=== PATIENT | female | born 1990 | race Two or more races ===

== ENCOUNTER 2017-12-04 02:42 | Emergency (ER) | payer MEDICAID ==
[~2017-12-04] VITALS: Ht 154.9 cm; Wt 71.2 kg
[2017-12-04 03:00] VITALS: BP 140/89
[2017-12-04] MEDS ORDERED: methylPREDNISolone SOD SUCC 125 MG/2 ML VL IM ONE (03:45)
[2017-12-04] MEDS ORDERED: KETOROLAC TROMETH 60MG/2ML VIAL IM ONE (03:45)
== END 2017-12-04 04:18 | disposition home or self-care (01) ==
LOC: ER 02:44
DX: S33.5XXA Sprain of ligaments of lumbar spine, initial encounter (principal); M79.1 Myalgia; X58.XXXA Exposure to other specified factors, initial encounter; Y93.89 Activity, other specified; Y92.89 Other specified places as the place of occurrence of the external cause; Y99.8 Other external cause status
CPT/HCPCS: 81025; 96372; 99284; J1885; J2930

== ENCOUNTER 2017-12-24 16:23 | Emergency (ER) | payer MEDICAID ==
[~2017-12-24] VITALS: Ht 154.9 cm; Wt 72.6 kg
[2017-12-24 18:04] LABS: Basophils # (auto) 0.1 uL; Basophils % (auto) 0.6 % (0.0-2.0); Eosinophils # (auto) 0.1 uL; Eosinophils % (auto) 0.8 % (0.0-7.0); Hematocrit 38.8 % (36.0-46.0); Lymphocytes # (auto) 1.4 uL; Mean Corpuscular Hemoglobin 30.1 pg (28.0-32.0); Mean Corpuscular Hgb Conc. 33.4 g/dL (32.0-36.0); Mean Corpuscular Volume 90.1 fL (80.0-100.0); Monocytes # (auto) 0.4 uL; Monocytes % (auto) 3.5 % (0.0-12.0); Neutrophils # (auto) 8.6 uL; Neutrophils % (auto) 82.1 % (37.0-80.0); Platelet Count (auto) 266 10^3/uL (140-450); Red Blood Cells 4.31 10^6/uL (4.0-5.20); Red Cell Distribution Width 13.6 % (11.8-14.3); White Blood Cell 10.4 10^3/uL (4.4-10.8)
[2017-12-24 18:23] LABS: BUN/Creatinine Ratio 16.9; Calcium 8.5 mg/dL (8.5-10.1); Magnesium 2.3 mg/dL (1.6-2.6); Potassium 3.6 mmol/L (3.5-5.1)
[2017-12-24] MEDS ORDERED: ONDANSETRON HCL 4 MG/2 ML VIAL IV ONE (19:30)
[2017-12-24] MEDS ORDERED: NALBUPHINE HCL 10 MG/1ml INJECTION IV ONE (19:30)
[2017-12-24 19:40] LABS: Urine Amorphous Crystal MOD /hpf (None Seen); Urine Bacteria FEW /hpf (None Seen); Urine Blood Negative /uL (Negative); Urine Mucus FEW (None Seen); Urine Specific Gravity 1.026 (1.001-1.035); Urine WBC 46 /hpf (0 - 5)
[2017-12-24 21:20] VITALS: BP 106/73
[2017-12-24] MEDS ORDERED: metroNIDAZOLE 500 MG TAB PO ONE (22:30)
[2017-12-24] MEDS ORDERED: CEPHALEXIN 250 MG CAP PO ONE (22:30)
== END 2017-12-24 22:41 | disposition home or self-care (01) ==
LOC: ER 16:23
DX: N39.0 Urinary tract infection, site not specified (principal); K80.20 Calculus of gallbladder without cholecystitis without obstruction
CPT/HCPCS: 36415; 74176; 80048; 81001; 81025; 82150; 83690; 83735; 85025; 96374; 96375; 99285; J2300; J2405

== ENCOUNTER 2019-02-05 08:39 | Emergency (ER) | payer MEDICAID ==
[~2019-02-05] VITALS: Ht 157.5 cm; Wt 79.4 kg
[2019-02-05 09:12] VITALS: BP 110/77
[2019-02-05] MEDS ORDERED: IBUPROFEN 800 MG TAB PO ONE (09:30)
== END 2019-02-05 10:16 | disposition home or self-care (01) ==
LOC: ER 08:39
DX: S13.4XXA Sprain of ligaments of cervical spine, initial encounter (principal); R51 Headache; V49.49XA Driver injured in collision with other motor vehicles in traffic accident, initial encounter; Y93.I9 Activity, other involving external motion; Y92.488 Other paved roadways as the place of occurrence of the external cause; Y99.8 Other external cause status